=== PATIENT | female | born 1985 | race African-American/Black ===

== ENCOUNTER 2020-03-26 16:08 | Emergency (ER) | payer MEDICAID ==
[~2020-03-26] VITALS: Ht 170.2 cm; Wt 82.0 kg
[2020-03-26 16:31] VITALS: BP 114/87
[2020-03-26 17:56] LABS: BASOPHILS % 0.4 % (0.0-2.0); EOSINOPHILS % 0.7 % (0.0-5.0); HEMATOCRIT. 37.8 % (36.0-48.0); HEMOGLOBIN. 12.4 g/dL (12.0-16.0); LYMPHOCYTES % 7.3 % (20.0-50.0); MEAN CORPUSCULAR HEMOGLOBIN 28.9 pg (28.0-32.0); MEAN CORPUSCULAR VOLUME 88.4 fL (81.0-99.0); MEAN PLATELET VOLUME 9.1 fl (7.4-10.4); MONOCYTES % 6.3 % (2.0-8.0); NEUTROPHILS % 85.3 % (40.0-76.0); PLATELET 295 x1000/uL (130-400); RED BLOOD CELL COUNT 4.27 mill/uL (4.2-5.4); RED CELL DISTRIBUTION WIDTH 17.3 % (11.6-14.6)
[2020-03-26 18:01] LABS: PROTHROMBIN TIME 10.3 sec (9.6-11.0)
[2020-03-26 18:07] LABS: CHLORIDE 104 mEq/L (98-107)
[2020-03-26 18:08] LABS: HCG SCREEN NEGATIVE
[2020-03-26 18:14] LABS: CLARITY URINE CLOUDY (CLEAR); COLOR URINE YELLOW (YELLOW); KETONES URINE TRACE (NEGATIVE); LEUKOCYTE ESTERASE URINE 3+ (NEGATIVE); NITRITE URINE NEGATIVE (NEGATIVE); OCCULT BLOOD URINE TRACE (NEGATIVE); PROTEIN URINE 1+ (NEGATIVE); SPECIFIC GRAVITY URINE 1.021 (1.005-1.030)
[2020-03-26] MEDS ORDERED: SODIUM CHLORIDE 0.9% 1,000 ML IV ONE (18:15)
[2020-03-26] MEDS ORDERED: ACETAMINOPHEN 500MG TABLET PO ONE (18:30)
[2020-03-26] MEDS ORDERED: CEFTRIAXONE 1 G PREMIX 50 ML IV ONE (18:30)
[2020-03-26 18:36] LABS: OPIATES URINE SCREEN NEGATIVE (NEGATIVE)
[2020-03-26 18:37] LABS: *BARBITURATES SCREEN URINE NEGATIVE (NEGATIVE); *BENZODIAZEPINES SCREEN URINE NEGATIVE (NEGATIVE); *COCAINE SCREEN URINE NEGATIVE (NEGATIVE); PHENCYCLIDINE URINE SCREEN NEGATIVE (NEGATIVE)
[2020-03-26 18:38] LABS: METHADONE URINE SCREEN NEGATIVE (NEGATIVE)
[2020-03-26 19:22] LABS: *AMPHETAMINES SCREEN URINE PRESUMTIVE POSITIVE (NEGATIVE); CANNABINOID URINE SCREEN PRESUMTIVE POSITIVE (NEGATIVE)
== END 2020-03-26 19:48 | disposition home or self-care (01) ==
LOC: ER 16:08
DX: K59.00 Constipation, unspecified (principal); N39.0 Urinary tract infection, site not specified
CPT/HCPCS: 36415; 80053; 80305; 81003; 81025; 83690; 84703; 85025; 85610; 87077; 87086; 87186; 99283; J7030

== ENCOUNTER 2021-01-12 21:04 | Emergency (ER) | payer MEDICAID ==
[~2021-01-12] VITALS: Ht 170.2 cm; Wt 87.0 kg
[2021-01-12 22:55] LABS: CLARITY URINE CLEAR (CLEAR); COLOR URINE YELLOW (YELLOW); KETONES URINE NEGATIVE (NEGATIVE); LEUKOCYTE ESTERASE URINE 1+ (NEGATIVE); NITRITE URINE NEGATIVE (NEGATIVE); OCCULT BLOOD URINE NEGATIVE (NEGATIVE); PROTEIN URINE NEGATIVE (NEGATIVE); UROBILINOGEN URINE 0.2 E.U./dL (0.2-1.0)
[2021-01-13 00:05] VITALS: BP 133/89
== END 2021-01-13 00:45 | disposition home or self-care (01) ==
LOC: ER 21:04
DX: Z33.1 Pregnant state, incidental (principal)
CPT/HCPCS: 81003; 99283

== ENCOUNTER 2022-01-18 15:36 | Inpatient (IN) | payer MEDICAID, OTHER ==
[~2022-01-18] VITALS: Ht 170.2 cm; Wt 106.6 kg
[2022-01-18] MEDS ORDERED: NALOXONE HCL 0.4 MG/ML 1ML VIAL IM PRN (17:15)
[2022-01-18] MEDS ORDERED: METHYLERGONOVINE MALEATE 0.2 MG/ML IM PRN (17:15)
[2022-01-18] MEDS ORDERED: LIDOCAINE HCL 1% 20ML VIAL (Pyxis) INJ INFIL SCH (17:15)
[2022-01-18] MEDS ORDERED: DEXT 5%/LR + PITOCIN 20UNITS/L 1,000 ML IV SCH (17:15)
[2022-01-18] MEDS ORDERED: DEXT 5%/LACTATED RINGERS 1,000 ML IV SCH (17:15)
[2022-01-18] MEDS ORDERED: PENICILLIN G POTASSIUM 5 MMU in DEXT 5% WATER 100 ML IV SCH (17:15)
[2022-01-18] MEDS ORDERED: MINERAL OIL 30ML BOTTLE TOP ONE (17:15)
[2022-01-18] MEDS ORDERED: RHO(D) IMMUNE GLOBULIN 300 MCG/SYR IM ONE (17:15)
[2022-01-18 17:36] LABS: CLARITY URINE TURBID (CLEAR); COLOR URINE YELLOW (YELLOW); KETONES URINE NEGATIVE (NEGATIVE); LEUKOCYTE ESTERASE URINE 3+ (NEGATIVE); NITRITE URINE POSITIVE (NEGATIVE); OCCULT BLOOD URINE 1+ (NEGATIVE); PH URINE 5.5 (4.5-8.0); PROTEIN URINE TRACE (NEGATIVE); SPECIFIC GRAVITY URINE 1.013 (1.005-1.030)
[2022-01-18 17:37] LABS: BASOPHILS % 0.4 % (0.0-2.0); EOSINOPHILS % 0.5 % (0.0-5.0); HEMATOCRIT. 38.5 % (36.0-48.0); HEMOGLOBIN. 13.3 g/dL (12.0-16.0); LYMPHOCYTES % 15.3 % (20.0-50.0); MEAN CORPUSCULAR HEMOGLOBIN 34.2 pg (28.0-32.0); MEAN CORPUSCULAR VOLUME 98.8 fL (81.0-99.0); MEAN PLATELET VOLUME 9.6 fl (7.4-10.4); MONOCYTES % 9.7 % (2.0-8.0); NEUTROPHILS % 74.1 % (40.0-76.0); PLATELET 229 x1000/uL (130-400); RED BLOOD CELL COUNT 3.89 mill/uL (4.2-5.4); RED CELL DISTRIBUTION WIDTH 12.7 % (11.6-14.6)
[2022-01-18 17:49] LABS: INR 0.9; PARTIAL THROMBOPLASTIN TIME 31.9 sec (23.4-31.0); PROTHROMBIN TIME 9.8 sec (9.6-11.0)
[2022-01-18 18:00] LABS: *AMPHETAMINES SCREEN URINE NEGATIVE (NEGATIVE); *BARBITURATES SCREEN URINE NEGATIVE (NEGATIVE); *BENZODIAZEPINES SCREEN URINE NEGATIVE (NEGATIVE); *COCAINE SCREEN URINE NEGATIVE (NEGATIVE); METHADONE URINE SCREEN NEGATIVE (NEGATIVE); OPIATES URINE SCREEN NEGATIVE (NEGATIVE); PHENCYCLIDINE URINE SCREEN NEGATIVE (NEGATIVE)
[2022-01-18] MEDS ORDERED: LACTATED RINGERS 1,000 ML IV SCH (18:00)
[2022-01-18 18:02] LABS: CANNABINOID URINE SCREEN PRESUMTIVE POSITIVE (NEGATIVE)
[2022-01-18 18:13] LABS: HEPATITIS B SURFACE ANTIGEN NEGATIVE
[2022-01-18] MEDS ORDERED: PENICILLIN G POTASSIUM 2.5 MMU in DEXTROSE 5% WATER 50 ML IV SCH (22:00)
[2022-01-18] MEDS ORDERED: LIDOCAINE HCL 2%/EPINEPHRINE 1:100,000 20 ML VIAL INFIL ONE (22:30)
[2022-01-18] MEDS ORDERED: ROPIVACAINE HCL/PF EPIDURAL 200 ML EPI SCH (22:30)
[2022-01-18] MEDS ORDERED: FENTANYL CITRATE/PF 50MCG/ML 2ML VIAL ONE (22:31)
[2022-01-19] MEDS ORDERED: METHYLERGONOVINE MALEATE 0.2 MG/ML IM PRN (04:45)
[2022-01-19] MEDS ORDERED: RHO(D) IMMUNE GLOBULIN 300 MCG/SYR IM PRN (04:45)
[2022-01-19] MEDS ORDERED: IBUPROFEN 400MG TABLET PO PRN (04:45)
[2022-01-19] MEDS ORDERED: DEXT 5%/LR + PITOCIN 20UNITS/L 1,000 ML IV SCH (04:45)
[2022-01-19] MEDS ORDERED: DIPHENHYDRAMINE 25MG CAPSULE PO PRN (04:45)
[2022-01-19] MEDS ORDERED: LANOLIN OINT 7GM TUBE TOP PRN (04:45)
[2022-01-19 05:30] VITALS: BP 104/64
[2022-01-19 08:00] VITALS: BP 104/63
[2022-01-19] MEDS: PRENATAL VIT/FE FUMARATE/FA TABLET PO SCH (10:20)
[2022-01-19] MEDS: IBUPROFEN 800MG TABLET PO PRN (13:28)
[2022-01-19 16:00] VITALS: BP 106/66
[2022-01-19 19:30] VITALS: BP 107/63
[2022-01-20] MEDS: IBUPROFEN 800MG TABLET PO PRN ×3 (00:11→13:16)
[2022-01-20 04:00] VITALS: BP 113/73
[2022-01-20] MEDS ORDERED: IBUP-2030 PO (05:57)
[2022-01-20 06:48] LABS: BASOPHILS % 0.5 % (0.0-2.0); EOSINOPHILS % 2.1 % (0.0-5.0); HEMATOCRIT. 34.8 % (36.0-48.0); HEMOGLOBIN. 11.6 g/dL (12.0-16.0); LYMPHOCYTES % 23.8 % (20.0-50.0); MEAN CORPUSCULAR HEMOGLOBIN 34.1 pg (28.0-32.0); MEAN PLATELET VOLUME 9.2 fl (7.4-10.4); NEUTROPHILS % 65.6 % (40.0-76.0); PLATELET 211 x1000/uL (130-400); RED BLOOD CELL COUNT 3.41 mill/uL (4.2-5.4); RED CELL DISTRIBUTION WIDTH 12.8 % (11.6-14.6)
[2022-01-20] MEDS: PRENATAL VIT/FE FUMARATE/FA TABLET PO SCH (07:57)
[2022-01-20 08:00] VITALS: BP 100/64
[2022-01-20 09:42] VITALS: BP 100/64
[2022-01-20 15:56] VITALS: BP 106/72
== END 2022-01-20 18:00 | disposition home or self-care (01) | DRG 560 ==
LOC: 8 EST LDRP 15:36 → OBSVTOIN 15:37 → 8EST 01-19 05:30
PROVIDERS: ADMIT Obstetrics & Gynecology; ATTEND Obstetrics & Gynecology
PROC: 10E0XZZ Delivery of Products of Conception, External Approach (ICD-10-PCS; principal; 2022-01-19)
PROC: 3E0R3BZ Introduction of Anesthetic Agent into Spinal Canal, Percutaneous Approach (ICD-10-PCS; 2022-01-19)
PROC: 00HU33Z Insertion of Infusion Device into Spinal Canal, Percutaneous Approach (ICD-10-PCS; 2022-01-19)
DX: O69.1XX0 Labor and delivery complicated by cord around neck, with compression, not applicable or unspecified (principal); Z37.0 Single live birth; Z20.822 Contact with and (suspected) exposure to COVID-19; Z3A.39 39 weeks gestation of pregnancy
CPT/HCPCS: 36415; 76805; 76818; 80305; 80349; 81003; 85025; 86592; 86593; 86703; 86762; 86780; 86850; 86900; 87077; 87186; 87340; 87426; 99281; G0378; J2540; J2590; J2795; J3010; J3490; J7060; J7120